=== PATIENT | female | born 1985 ===

== ENCOUNTER 2016-11-24 01:20 | Emergency (ER) | payer SELFPAY ==
[2016-11-24 01:20] VITALS: BMI 27.3
[2016-11-24 01:28] VITALS: BP 113/93; PULSE 82; RESP 17; TEMP 98.7; O2SAT 100
--- NOTE | 2016-11-24 01:52 | ED PDOC ---
HPI: General Adult Time Seen by Provider: 11/24/16 01:40 Chief Complaint (Nursing): Medical Clearance Chief Complaint (Provider): clearance for incarceration History Per: Patient, Other (PD) History/Exam Limitations: no limitations Additional History Per: Patient Additional Complaint(s): 31 y/o female history of heroin abuse, asthma, PTSD here in police custody for medical/psych clearance for incarceration. Patient denies acute medical or psychiatric complaints. Past Medical History Reviewed: Historical Data, Nursing Documentation, Vital Signs Vital Signs: Last Vital Signs Temp 98.7 F 11/24/16 01:25 Pulse 82 11/24/16 01:25 Resp 17 11/24/16 01:25 BP 113/93 H 11/24/16 01:25 Pulse Ox 100 11/24/16 01:52 - Medical History PMH: Anemia, Anxiety, Asthma, Depression, HTN, Kidney Stones (bilateral small stones seen on a previous CT of the abdomen done here 03/09/13.) - Family History Family History: States: Unknown Family Hx - Social History Current smoker - smoking cessation education provided: No Alcohol: Occasional Drugs: Opiates - Immunization History Hx Tetanus Toxoid Vaccination: Yes Hx Influenza Vaccination: No Hx Pneumococcal Vaccination: No - Home Medications Home Medications: Ambulatory Orders Medication Instructions Recorded Acetaminophen/Oxycodone Hydr 1 tab PO Q4H #30 tab 04/04/13 [Percocet 325 mg-5 mg] Alprazolam [Xanax] 1 mg PO BID #30 tab 04/04/13 Ibuprofen [Motrin] 800 mg PO 07/31/13 Nitrofurantoin Macrocrystals 100 mg PO BID #10 cap 07/31/13 [Macrobid] Phenazopyridine [Phenazopyridine 200 mg PO TID PRN #12 tab 07/31/13 HCl] - Allergies Allergies/Adverse Reactions: Allergies Allergy/AdvReac Type Severity Reaction Status Date / Time No Known Allergies Allergy Verified 02/09/15 06:07 Review of Systems ROS Statement: Except As Marked, All Systems Reviewed And Found Negative Physical Exam - Reviewed Nursing Documentation Reviewed: Yes Vital Signs Reviewed: Yes - Physical Exam Appears: Positive for: Well, Non-toxic, No Acute Distress Head Exam: Positive for: ATRAUMATIC, NORMAL INSPECTION, NORMOCEPHALIC Skin: Positive for: Normal Color Eye Exam: Positive for: Normal appearance ENT: Positive for: Normal ENT Inspection Cardiovascular/Chest: Positive for: Regular Rate, Rhythm Respiratory: Positive for: Normal Breath Sounds Gastrointestinal/Abdominal: Positive for: Normal Exam Back: Positive for: Normal Inspection Extremity: Positive for: Normal ROM Neurologic/Psych: Positive for: Alert, Oriented - ECG O2 Sat by Pulse Oximetry: 100 - Progress ED Course And Treament: Patient cleared by [employer] terra[employer] worker for discharge as per Dr. Donis. Disposition - Clinical Impression Clinical Impression: Medical clearance for incarceration - Patient ED Disposition Is Patient to be Admitted: No Counseled Patient/Family Regarding: Diagnosis, Need For Followup - Disposition Disposition: Routine/Home Disposition Time: 01:51 Condition: STABLE Additional Instructions: Patient medically and psychiatrically cleared for incarceration
== END 2016-11-24 02:15 ==
LOC: H.ER 01:20
DX: Z00.8 Encounter for other general examination (principal); F43.10 Post-traumatic stress disorder, unspecified; I10 Essential (primary) hypertension

== ENCOUNTER 2017-10-21 22:31 | Emergency (ER) | payer MEDICAID ==
[2017-10-21 22:31] VITALS: BMI 27.3
--- NOTE | 2017-10-21 22:55 | ED PDOC ---
HPI: Psych/Substance Abuse Time Seen by Provider: 10/21/17 22:40 Chief Complaint (Nursing): Substance Abuse Chief Complaint (Provider): medical clearance ED Caveat: Uncooperative Additional History Per: Law Enforcement Additional Complaint(s): Pt brought by [facility] for medical and psychiatric evaluation. Pt was initially under custody of [facility] for unknown reason. Custody transferred to [place] for warrants. Officer reports that pt was alert when got into police car, but started to fall asleep on the way over here. Pt now very lethargic and sleepy. Stays awake only briefly and needs persistent stimulation to stay awake. Reportedly smoked crack prior to being arrested by [facility]. Past Medical History Reviewed: Historical Data, Nursing Documentation, Vital Signs Vital Signs: Last Vital Signs Temp 97.5 F L 10/21/17 22:47 Pulse 86 10/21/17 22:47 Resp 12 10/21/17 22:47 BP 107/61 10/21/17 22:47 Pulse Ox 97 10/21/17 22:47 - Medical History PMH: Anemia, Anxiety, Asthma, Depression, HTN, Kidney Stones (bilateral small stones seen on a previous CT of the abdomen done here 03/09/13.) Denies: Diabetes, Hepatitis, HIV, Seizures, Sexually Transmitted Disease - Family History Family History: States: Unknown Family Hx - Immunization History Hx Tetanus Toxoid Vaccination: Yes Hx Influenza Vaccination: No Hx Pneumococcal Vaccination: No - Home Medications Home Medications: Ambulatory Orders Medication Instructions Recorded Acetaminophen/Oxycodone Hydr 1 tab PO Q4H #30 tab 04/04/13 [Percocet 325 mg-5 mg] Alprazolam [Xanax] 1 mg PO BID #30 tab 04/04/13 Ibuprofen [Motrin] 800 mg PO 07/31/13 Nitrofurantoin Macrocrystals 100 mg PO BID #10 cap 07/31/13 [Macrobid] Phenazopyridine [Phenazopyridine 200 mg PO TID PRN #12 tab 07/31/13 HCl] - Allergies Allergies/Adverse Reactions: Allergies Allergy/AdvReac Type Severity Reaction Status Date / Time No Known Allergies Allergy Verified 10/21/17 22:34 Review of Systems Review Of Systems: ROS cannot be obtained secondary to pt's inabilty to answer questions. Physical Exam - Reviewed Nursing Documentation Reviewed: Yes Vital Signs Reviewed: Yes - Physical Exam Appears: Positive for: No Acute Distress (sleeping, unkempt) Head Exam: Positive for: ATRAUMATIC, NORMOCEPHALIC Skin: Positive for: Warm, Dry (minor abrasions bilateral arms) Eye Exam: Positive for: PERRL ENT: Positive for: Pharynx Is (clear) Neck: Positive for: Painless ROM, Supple Cardiovascular/Chest: Positive for: Regular Rate, Rhythm. Negative for: Murmur Respiratory: Positive for: Normal Breath Sounds. Negative for: Wheezing Gastrointestinal/Abdominal: Positive for: Soft. Negative for: Tenderness Back: Positive for: Normal Inspection. Negative for: Decreased ROM Extremity: Positive for: Normal ROM. Negative for: Deformity Lymphatic: Negative for: Adenopathy Neurologic/Psych: Positive for: Other (responding to painful stimuli). Negative for: Alert, Motor/Sensory Deficits - Laboratory Results Result Diagrams: 10/21/17 23:10 10/21/17 23:10 - ECG O2 Sat by Pulse Oximetry: 97 Disposition - Clinical Impression Clinical Impression: Substance abuse - Disposition Disposition: Transfer of Care Disposition Time: 00:00 Condition: STABLE Additional Instructions: Patient is medically and psychiatrically cleared for incarceration. Patient Signed Over To: Joaquin May Handoff Comments: Pending ER workup, crisis eval, and final ER disposition
[2017-10-21] MEDS ORDERED: Sodium Chloride 0.9% 1,000 ML IV STA (23:03)
[2017-10-21 23:21] LABS: BASO # 0.1 K/uL (0.0-0.2); BASO % 0.7 % (0.0-2.0); EOS # 0.4 K/uL (0.0-0.7); EOS % 3.8 % (0.0-4.0); HEMOGLOBIN 13.5 g/dL (12.0-16.0); LYMPH # 3.6 K/uL (1.0-4.3); LYMPH % 32.6 % (20.0-40.0); MEAN CELL VOLUME 82.7 fl (81.0-99.0); MEAN CORPUSCULAR HEMOGLOBIN 26.7 pg (27.0-31.0); MEAN CORPUSCULAR HGB CONC 32.2 g/dL (33.0-37.0); MEAN PLATELET VOLUME 7.6 fl (7.2-11.7); MONO # 0.9 K/uL (0.0-0.8); MONO % 8.1 % (0.0-10.0); NEUT % 54.8 % (50.0-75.0); RBC 5.06 Mil/uL (3.80-5.20); RED CELL DISTRIBUTION WIDTH 14.1 % (11.5-14.5)
[2017-10-21 23:34] LABS: ALB/GLOB RATIO 1.1 (1.0-2.1); ALBUMIN 3.9 g/dL (3.5-5.0); ALT/SGPT 34 U/L (9-52); AST/SGOT 29 U/L (14-36); BLOOD UREA NITROGEN 19 mg/dl (7-17); CALCIUM 9.4 mg/dL (8.4-10.2); GFR AFRICAN-AMERICAN > 60; GFR NON-AFRICAN AMERICAN > 60
--- NOTE | 2017-10-22 01:08 | ED PDOC ---
- Laboratory Results Result Diagrams: 10/21/17 23:10 10/21/17 23:10 - ECG O2 Sat by Pulse Oximetry: 97 Medical Decision Making Medical Decision Making: Time: 00:00 Patient is signed over to me by Dr. Bertha Taylor pending reevaluation. 0400 Patient with good strength in extremities, awake, alert. Will d/c into police custody. Scribe Attestation: Documented by Viji Romo acting as a scribe for Joaquin May MD. Scribe Attestation: All medical record entries made by the Scribe were at my direction and personally dictated by me. I have reviewed the chart and agree that the record accurately reflects my personal performance of the history, physical exam, medical decision making, and the department course for this patient. I have also personally directed, reviewed, and agree with the discharge instructions and disposition. Disposition - Clinical Impression Clinical Impression: Overdose of cocaine, Cannabis abuse - POA Present On Arrival: None - Disposition Referrals: [facility] [Outside] Disposition: Discharged/Transfer to Law Enforcement Disposition Time: 04:00 Condition: STABLE Additional Instructions: Patient is medically and psychiatrically cleared for incarceration. Instructions: Drug Abuse and Drug Addiction (DC), Drug Abuse Treatment Forms: [employer] (Dutch)
--- NOTE | 2017-10-22 01:12 | CT ---
EXAM: CT Head Without Intravenous Contrast CLINICAL HISTORY: 32 years old, female; Signs and symptoms; Malaise or fatigue and other: Lethargic; Patient HX: See phys doc TECHNIQUE: Axial computed tomography images of the head/brain without intravenous contrast. All CT scans at this facility use one or more dose reduction techniques, viz.: automated exposure control; ma/kV adjustment per patient size (including targeted exams where dose is matched to indication; i.e. head); or iterative reconstruction technique. Coronal and sagittal reformatted images were created and reviewed. COMPARISON: CT - HEAD W/O CONTRAST 2015-11-29 17:06 FINDINGS: Brain: Unremarkable. No hemorrhage. No significant white matter disease. No edema. Ventricles: Unremarkable. No ventriculomegaly. Bones/joints: Unremarkable. No acute fracture. Soft tissues: Unremarkable. Sinuses: There is diffuse mucoperiosteal thickening in the maxillary and ethmoid sinuses, consistent with chronic sinusitis. Mastoid air cells: Unremarkable as visualized. No mastoid effusion. IMPRESSION: No acute intracranial findings. Chronic sinusitis.
[2017-10-22 04:08] LABS: SQUAMOUS EPITHIAL 1 /hpf (0-5); URINE BACTERIA RARE (<OCC); URINE BILIRUBIN NEGATIVE (NEGATIVE); URINE BLOOD NEGATIVE (NEGATIVE); URINE CLARITY CLEAR (Clear); URINE COLOR STRAW (YELLOW); URINE GLUCOSE (UA) NEG (Normal); URINE LEUKOCYTE ESTERASE NEG Leu/uL (Negative); URINE PROTEIN NEGATIVE (NEGATIVE); URINE UROBILINOGEN 0.2-1.0 mg/dL (0.2-1.0)
[2017-10-22 04:13] LABS: BARBITURATES, UR NEGATIVE (NEGATIVE)
[2017-10-22 04:17] LABS: BENZODIAZEPINES, UR NEGATIVE (NEGATIVE); OPIATES, UR POSITIVE (NEGATIVE); PHENCYCLIDINE, UR NEGATIVE (NEGATIVE)
[2017-10-22 05:29] VITALS: BP 127/77; PULSE 73; RESP 15; TEMP 97.8
[2017-10-22 06:03] VITALS: O2SAT 97
== END 2017-10-22 05:20 ==
LOC: H.ER 22:31
DX: F12.10 Cannabis abuse, uncomplicated; T40.5X1A Poisoning by cocaine, accidental (unintentional), initial encounter; F32.9 Major depressive disorder, single episode, unspecified; F41.9 Anxiety disorder, unspecified; I10 Essential (primary) hypertension; J32.9 Chronic sinusitis, unspecified; J45.909 Unspecified asthma, uncomplicated; Z87.442 Personal history of urinary calculi
CPT/HCPCS: 70450; 80053; 80320; 80324; 80345; 80346; 80349; 80353; 80358; 80361; 81003; 82948; 83992; 84703; 85025; 99284; J7040

== ENCOUNTER 2017-10-22 06:30 | Emergency (ER) | payer MEDICAID ==
[2017-10-22 06:30] VITALS: BMI 27.3
[2017-10-22 06:37] VITALS: BP 138/74; PULSE 76; RESP 16; TEMP 98; O2SAT 96
--- NOTE | 2017-10-22 06:43 | ED PDOC ---
HPI: General Adult Time Seen by Provider: 10/22/17 06:40 Chief Complaint (Nursing): Medical Clearance History Per: Patient History/Exam Limitations: no limitations Onset/Duration Of Symptoms: Mins Have you had recent travel within the past 21 days to any of the following countries: [place], [place], [place] or [place]?: No Additional Complaint(s): Pt. brought back to ER by police, pt was seen for drug abuse and was discharged , patient then was walked back to ER because she was claiming to be suicidal. Past Medical History Reviewed: Historical Data, Nursing Documentation, Vital Signs Vital Signs: Last Vital Signs Temp 98.0 F 10/22/17 06:32 Pulse 76 10/22/17 06:32 Resp 16 10/22/17 06:32 BP 138/74 10/22/17 06:32 Pulse Ox 96 10/22/17 06:32 - Medical History PMH: Anemia, Anxiety, Asthma, Depression, HTN, Kidney Stones (bilateral small stones seen on a previous CT of the abdomen done here 03/09/13.) Denies: Diabetes, Hepatitis, HIV, Seizures, Sexually Transmitted Disease - Family History Family History: States: Unknown Family Hx - Immunization History Hx Tetanus Toxoid Vaccination: Yes Hx Influenza Vaccination: No Hx Pneumococcal Vaccination: No - Home Medications Home Medications: Ambulatory Orders Medication Instructions Recorded Acetaminophen/Oxycodone Hydr 1 tab PO Q4H #30 tab 04/04/13 [Percocet 325 mg-5 mg] Alprazolam [Xanax] 1 mg PO BID #30 tab 04/04/13 Ibuprofen [Motrin] 800 mg PO 07/31/13 Nitrofurantoin Macrocrystals 100 mg PO BID #10 cap 07/31/13 [Macrobid] Phenazopyridine [Phenazopyridine 200 mg PO TID PRN #12 tab 07/31/13 HCl] - Allergies Allergies/Adverse Reactions: Allergies Allergy/AdvReac Type Severity Reaction Status Date / Time No Known Allergies Allergy Verified 10/21/17 22:34 Review of Systems ROS Statement: Except As Marked, All Systems Reviewed And Found Negative Psych: Positive for: Suicidal ideation Physical Exam - Reviewed Nursing Documentation Reviewed: Yes Vital Signs Reviewed: Yes - Physical Exam Appears: Positive for: Well, Non-toxic, No Acute Distress Head Exam: Positive for: ATRAUMATIC, NORMAL INSPECTION, NORMOCEPHALIC Skin: Positive for: Normal Color, Warm, DRY Eye Exam: Positive for: EOMI, Normal appearance, PERRL ENT: Positive for: Normal ENT Inspection Neck: Positive for: Normal, Painless ROM Cardiovascular/Chest: Positive for: Regular Rate, Rhythm Respiratory: Positive for: CNT, Normal Breath Sounds Gastrointestinal/Abdominal: Positive for: Normal Exam, Bowel Sounds, Soft Back: Positive for: Normal Inspection Extremity: Positive for: Normal ROM Neurologic/Psych: Positive for: 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 Will d/c back into police custody. Patient stable, vitals normal. Disposition - Clinical Impression Clinical Impression: Normal exam - Disposition Referrals: [facility] [Outside] Disposition: Routine/Home Disposition Time: 06:43 Condition: STABLE Additional Instructions: Patient is once again medically and psychiatrically cleared for incarceration. Instructions: Suicide Prevention Forms: [employer] (Slovenian)
== END 2017-10-22 07:09 ==
LOC: H.ER 06:30
DX: R45.851 Suicidal ideations